=== PATIENT | female | born 1975 | race African-American/Black ===

== ENCOUNTER 2019-10-08 14:02 | Emergency (ER) | payer OTHER ==
[~2019-10-08] VITALS: Ht 160 cm; Wt 69.0 kg
[2019-10-08] MEDS ORDERED: SODIUM CHLORIDE 0.9% 1,000 ML IV ONE (14:32)
[2019-10-08 15:04] LABS: CHLORIDE 106 mEq/L (98-107); CLARITY URINE CLEAR (CLEAR); COLOR URINE YELLOW (YELLOW); KETONES URINE NEGATIVE (NEGATIVE); LEUKOCYTE ESTERASE URINE NEGATIVE (NEGATIVE); NITRITE URINE NEGATIVE (NEGATIVE); OCCULT BLOOD URINE NEGATIVE (NEGATIVE); PH URINE 5.5 (4.5-8.0); PROTEIN URINE NEGATIVE (NEGATIVE); SPECIFIC GRAVITY URINE 1.006 (1.005-1.030); UROBILINOGEN URINE 0.2 E.U./dL (0.2-1.0)
[2019-10-08 15:07] LABS: BASOPHILS % 0.7 % (0.0-2.0); EOSINOPHILS % 1.6 % (0.0-5.0); HEMATOCRIT. 31.6 % (36.0-48.0); HEMOGLOBIN. 11.1 g/dL (12.0-16.0); LYMPHOCYTES % 42.8 % (20.0-50.0); MEAN CORPUSCULAR HEMOGLOBIN 34.7 pg (28.0-32.0); MEAN PLATELET VOLUME 7.1 fl (7.4-10.4); MONOCYTES % 4.5 % (2.0-8.0); NEUTROPHILS % 50.4 % (40.0-76.0); PLATELET 181 x1000/uL (130-400); RED BLOOD CELL COUNT 3.19 mill/uL (4.2-5.4); RED CELL DISTRIBUTION WIDTH 13.3 % (11.6-14.6)
[2019-10-08 15:09] LABS: ETHANOL BLOOD 228 mg/dL
[2019-10-08 15:16] LABS: HCG SCREEN NEGATIVE
[2019-10-08 15:20] LABS: *BARBITURATES SCREEN URINE NEGATIVE (NEGATIVE); *BENZODIAZEPINES SCREEN URINE NEGATIVE (NEGATIVE); *COCAINE SCREEN URINE NEGATIVE (NEGATIVE); METHADONE URINE SCREEN NEGATIVE (NEGATIVE); OPIATES URINE SCREEN NEGATIVE (NEGATIVE); PHENCYCLIDINE URINE SCREEN NEGATIVE (NEGATIVE)
[2019-10-08 15:21] LABS: CANNABINOID URINE SCREEN NEGATIVE (NEGATIVE)
[2019-10-08 15:57] LABS: *AMPHETAMINES SCREEN URINE PRESUMTIVE POSITIVE (NEGATIVE)
[2019-10-08] MEDS ORDERED: PHENYTOIN SODIUM 1,000 MG in SODIUM CHLORIDE 0.9% 100 ML IV ONE (16:30)
[2019-10-08] MEDS ORDERED: KETOROLAC 30MG/ML VIAL IV ONE (16:30)
[2019-10-08 17:14] VITALS: BP 139/89
[2019-10-08] MEDS ORDERED: POTASSIUM CHLORIDE 20MEQ TABLET SR PO ONE (18:45)
== END 2019-10-09 04:05 | disposition home or self-care (01) ==
LOC: ER 14:02
DX: R56.9 Unspecified convulsions (principal); E87.6 Hypokalemia; M25.552 Pain in left hip; F10.129 Alcohol abuse with intoxication, unspecified; Y90.7 Blood alcohol level of 200-239 mg/100 ml; I10 Essential (primary) hypertension; F14.10 Cocaine abuse, uncomplicated
CPT/HCPCS: 36415; 73502; 80053; 80185; 80305; 80320; 81003; 81025; 84703; 85025; 96365; 96375; 99284; J1165; J1885; J7030; J7050; G0480

== ENCOUNTER 2020-11-20 19:25 | Inpatient (IN) | payer MEDICAID, OTHER ==
[~2020-11-20] VITALS: Ht 157.5 cm; Wt 65.3 kg
[2020-11-20] MEDS ORDERED: LORAZEPAM 2MG/ML CPJ IV ONE (20:00)
[2020-11-20] MEDS ORDERED: SODIUM CHLORIDE 0.9% 1,000 ML IV ONE (20:00)
[2020-11-20 20:41] LABS: BASOPHILS % 0.8 % (0.0-2.0); EOSINOPHILS % 2.1 % (0.0-5.0); HEMATOCRIT. 35.4 % (36.0-48.0); HEMOGLOBIN. 12.8 g/dL (12.0-16.0); LYMPHOCYTES % 46.2 % (20.0-50.0); MEAN CORPUSCULAR HEMOGLOBIN 36.2 pg (28.0-32.0); MEAN CORPUSCULAR VOLUME 100.3 fL (81.0-99.0); MEAN PLATELET VOLUME 6.8 fl (7.4-10.4); MONOCYTES % 4.8 % (2.0-8.0); NEUTROPHILS % 46.1 % (40.0-76.0); PLATELET 334 x1000/uL (130-400); RED BLOOD CELL COUNT 3.53 mill/uL (4.2-5.4); RED CELL DISTRIBUTION WIDTH 12.5 % (11.6-14.6)
[2020-11-20 20:47] LABS: CHLORIDE 112 mEq/L (98-107)
[2020-11-20] MEDS ORDERED: PHENYTOIN SODIUM 1,000 MG in SODIUM CHLORIDE 0.9% 100 ML IV NR (21:00)
[2020-11-20 21:12] LABS: ETHANOL BLOOD 212 mg/dL
[2020-11-20 21:55] LABS: HCG SCREEN NEGATIVE
[2020-11-21] MEDS ORDERED: DIPHENHYDRAMINE 50MG/ML VIAL IV PRN (04:00)
[2020-11-21] MEDS ORDERED: LORAZEPAM 2MG/ML CPJ IV PRN (04:00)
[2020-11-21] MEDS ORDERED: ONDANSETRON HCL 4MG/2ML INJ IV PRN (04:00)
[2020-11-21] MEDS ORDERED: ACETAMINOPHEN 325MG TABLET PO PRN (04:00)
[2020-11-21] MEDS ORDERED: MVI, ADULT NO.1 10 ML, FOLIC ACID 1 MG, THIAMINE HCL 100 MG in SODIUM CHLORIDE 0.9% 1,0... IV SCH (05:00)
[2020-11-21] MEDS: SODIUM CHLORIDE 0.9% INJ 3ML FLUSH IVF SCH ×3 (06:29→21:45)
[2020-11-21] MEDS: PHENYTOIN SODIUM EXTENDED 100MG CAPSULE PO SCH ×3 (06:30→21:45)
[2020-11-21 08:39] LABS: CLARITY URINE CLEAR (CLEAR); COLOR URINE YELLOW (YELLOW); KETONES URINE NEGATIVE (NEGATIVE); LEUKOCYTE ESTERASE URINE 2+ (NEGATIVE); NITRITE URINE NEGATIVE (NEGATIVE); OCCULT BLOOD URINE NEGATIVE (NEGATIVE); PROTEIN URINE NEGATIVE (NEGATIVE); SPECIFIC GRAVITY URINE 1.016 (1.005-1.030); UROBILINOGEN URINE 0.2 E.U./dL (0.2-1.0)
[2020-11-21] MEDS: CLONIDINE 0.1MG TABLET PO PRN (08:43)
[2020-11-21] MEDS: ACETAMINOPHEN 325MG TABLET PO PRN (08:43)
[2020-11-21 09:16] LABS: CANNABINOID URINE SCREEN NEGATIVE (NEGATIVE); PHENCYCLIDINE URINE SCREEN NEGATIVE (NEGATIVE)
[2020-11-21 09:17] LABS: *AMPHETAMINES SCREEN URINE NEGATIVE (NEGATIVE); *BARBITURATES SCREEN URINE NEGATIVE (NEGATIVE)
[2020-11-21 09:18] LABS: *COCAINE SCREEN URINE NEGATIVE (NEGATIVE)
[2020-11-21 09:19] LABS: METHADONE URINE SCREEN NEGATIVE (NEGATIVE); OPIATES URINE SCREEN NEGATIVE (NEGATIVE)
[2020-11-21 09:21] LABS: *BENZODIAZEPINES SCREEN URINE PRESUMTIVE POSITIVE (NEGATIVE)
[2020-11-21 20:50] VITALS: BP 124/94
[2020-11-21] MEDS ORDERED: ACET-2708 MT (23:16)
[2020-11-21] MEDS ORDERED: AMLO5TAB88 PO (23:16)
[2020-11-21] MEDS ORDERED: PHEN100C4 PO (23:16)
[2020-11-21] MEDS ORDERED: CYCL25PO21 PO (23:16)
[2020-11-22] VITALS: BP 141/88
[2020-11-22 04:00] VITALS: BP 155/103
[2020-11-22] MEDS: CLONIDINE 0.1MG TABLET PO PRN (06:12)
[2020-11-22] MEDS: PHENYTOIN SODIUM EXTENDED 100MG CAPSULE PO SCH ×2 (06:12→14:04)
[2020-11-22] MEDS: SODIUM CHLORIDE 0.9% INJ 3ML FLUSH IVF SCH ×2 (06:12→14:05)
[2020-11-22 08:00] VITALS: BP 98/71
[2020-11-22] MEDS ORDERED: AMLODIPINE 5MG TABLET PO SCH (09:00)
[2020-11-22] MEDS: ACETAMINOPHEN 325MG TABLET PO PRN (10:28)
[2020-11-22 12:00] VITALS: BP 131/82
[2020-11-22 15:00] VITALS: BP 131/79
== END 2020-11-22 16:30 | disposition home or self-care (01) | DRG 53 ==
LOC: ER 19:25 → MICUSO 21:44 → 6WST 11-21 19:31
PROVIDERS: ADMIT Internal Medicine; ATTEND Internal Medicine
DX: G40.909 Epilepsy, unspecified, not intractable, without status epilepticus (principal); G92 Toxic encephalopathy; Y90.7 Blood alcohol level of 200-239 mg/100 ml; F12.90 Cannabis use, unspecified, uncomplicated; I10 Essential (primary) hypertension; Z91.19 Patient's noncompliance with other medical treatment and regimen; Z91.14 Patient's other noncompliance with medication regimen; Z59.0 Homelessness; F10.10 Alcohol abuse, uncomplicated
CPT/HCPCS: 36415; 80053; 80185; 80305; 80320; 81003; 84703; 85025; 93005; 99291; J1165; J2060; J3411; J3490; J7030; J7050; G0480

== ENCOUNTER 2020-11-25 16:23 | Emergency (ER) | payer MEDICAID ==
[~2020-11-25] VITALS: Ht 157.5 cm; Wt 66.0 kg
[~2020-11-25 16:23] MED LIST: ACET-2708 MT; AMLO5TAB88 PO; CYCL25PO21 PO; PHEN100C4 PO
[2020-11-25] MEDS ORDERED: ACETAMINOPHEN 325MG TABLET PO STA (20:19)
[2020-11-25] MEDS ORDERED: POLYETHYLENE GLYCOL 3350 (17GM) 1 DOSE PACK PO ONE (20:30)
[2020-11-25 21:10] LABS: EOSINOPHILS % 3.4 % (0.0-5.0); HEMATOCRIT. 34.6 % (36.0-48.0); HEMOGLOBIN. 11.6 g/dL (12.0-16.0); LYMPHOCYTES % 38.6 % (20.0-50.0); MEAN CORPUSCULAR HEMOGLOBIN 34.3 pg (28.0-32.0); MEAN CORPUSCULAR VOLUME 101.8 fL (81.0-99.0); MEAN PLATELET VOLUME 7.3 fl (7.4-10.4); MONOCYTES % 8.2 % (2.0-8.0); NEUTROPHILS % 48.8 % (40.0-76.0); PLATELET 266 x1000/uL (130-400); RED CELL DISTRIBUTION WIDTH 12.9 % (11.6-14.6)
[2020-11-25 21:14] LABS: CLARITY URINE CLEAR (CLEAR); COLOR URINE YELLOW (YELLOW); KETONES URINE NEGATIVE (NEGATIVE); LEUKOCYTE ESTERASE URINE 2+ (NEGATIVE); NITRITE URINE NEGATIVE (NEGATIVE); OCCULT BLOOD URINE NEGATIVE (NEGATIVE); PH URINE 5.5 (4.5-8.0); PROTEIN URINE NEGATIVE (NEGATIVE); SPECIFIC GRAVITY URINE 1.017 (1.005-1.030); UROBILINOGEN URINE 0.2 E.U./dL (0.2-1.0)
[2020-11-25 21:16] LABS: CHLORIDE 105 mEq/L (98-107)
[2020-11-25] MEDS ORDERED: CEPH500T MT (21:58)
[2020-11-25] MEDS ORDERED: POLY119P2 MT (21:59)
[2020-11-25] MEDS ORDERED: CEPHALEXIN 250MG CAPSULE PO SCH (22:00)
[2020-11-25 22:20] VITALS: BP 129/67
== END 2020-11-25 22:23 | disposition home or self-care (01) ==
LOC: ER 16:58
DX: R51.9 Headache, unspecified (principal); R42 Dizziness and giddiness; N39.0 Urinary tract infection, site not specified; R74.01 Elevation of levels of liver transaminase levels; I10 Essential (primary) hypertension; Z86.59 Personal history of other mental and behavioral disorders
CPT/HCPCS: 36415; 70450; 80053; 81003; 85025; 99284; Z7610

== ENCOUNTER 2023-01-29 02:24 | Emergency (ER) | payer MEDICAID ==
[~2023-01-29] VITALS: Ht 167.6 cm; Wt 104.0 kg
[~2023-01-29 02:24] MED LIST changes: +CEPH500T MT; +CYCL25PO15 PO; -CYCL25PO21 PO; +POLY119P2 MT
[2023-01-29 02:28] VITALS: BP 133/94; O2SAT 97
[2023-01-29] MEDS ORDERED: ACETAMINOPHEN 325MG TABLET PO ONE (03:00)
[2023-01-29] MEDS ORDERED: IBUP-2029 MT (05:51)
[2023-01-29 06:33] VITALS: PULSE 97; RESP 15; TEMP 96.9
== END 2023-01-29 06:34 | disposition home or self-care (01) ==
LOC: ER 02:24
DX: S06.0X0A Concussion without loss of consciousness, initial encounter (principal); I10 Essential (primary) hypertension; Z86.59 Personal history of other mental and behavioral disorders; Y04.0XXA Assault by unarmed brawl or fight, initial encounter; Y93.89 Activity, other specified; Y92.89 Other specified places as the place of occurrence of the external cause; Y99.8 Other external cause status
CPT/HCPCS: 99284